=== PATIENT | male | born 1990 | race Caucasian/White ===

== ENCOUNTER 2019-11-17 15:00 | Emergency (ER) | payer SELFPAY ==
[~2019-11-17] VITALS: Ht 172.7 cm; Wt 94.3 kg
[2019-11-17 15:06] VITALS: Ht 172.7 cm; Wt 94.3 kg
[2019-11-17 15:55] VITALS: BP 131/68
== END 2019-11-17 15:55 | disposition home or self-care (01) ==
LOC: ED 15:00
DX: L03.116 Cellulitis of left lower limb (principal); S81.812D Laceration without foreign body, left lower leg, subsequent encounter; Z88.0 Allergy status to penicillin; W54.0XXD Bitten by dog, subsequent encounter

== ENCOUNTER 2019-11-20 16:44 | Emergency (ER) | payer SELFPAY ==
[~2019-11-20] VITALS: Ht 172.7 cm; Wt 94.8 kg
[2019-11-20 17:30] VITALS: BP 120/72; Ht 172.7 cm; Wt 94.8 kg
== END 2019-11-20 18:02 | disposition home or self-care (01) ==
LOC: ED 16:44
DX: S81.852D Open bite, left lower leg, subsequent encounter (principal); L08.9 Local infection of the skin and subcutaneous tissue, unspecified; Z88.0 Allergy status to penicillin; W54.0XXD Bitten by dog, subsequent encounter

== ENCOUNTER 2019-12-13 16:57 | Emergency (ER) | payer SELFPAY ==
[~2019-12-13] VITALS: Ht 172.7 cm; Wt 95.3 kg
[2019-12-13 17:01] VITALS: BP 139/78; Ht 172.7 cm; Wt 95.3 kg
== END 2019-12-13 17:27 | disposition home or self-care (01) ==
LOC: ED 16:57
DX: L03.116 Cellulitis of left lower limb (principal); Z88.0 Allergy status to penicillin

== ENCOUNTER 2019-12-15 13:53 | Emergency (ER) | payer SELFPAY ==
[~2019-12-15] VITALS: Ht 172.7 cm; Wt 95.3 kg
[2019-12-15 14:05] VITALS: BP 134/82; Ht 172.7 cm; Wt 95.3 kg
== END 2019-12-15 15:01 | disposition home or self-care (01) ==
LOC: ED 13:53
DX: L03.116 Cellulitis of left lower limb (principal); Z88.0 Allergy status to penicillin

== ENCOUNTER 2019-12-19 15:01 | Emergency (ER) | payer SELFPAY ==
[~2019-12-19] VITALS: Ht 172.7 cm; Wt 96.2 kg
[2019-12-19 15:22] VITALS: BP 105/75; Ht 172.7 cm; Wt 96.2 kg
== END 2019-12-19 15:47 | disposition home or self-care (01) ==
LOC: ED 15:01
DX: L03.116 Cellulitis of left lower limb (principal); Z88.0 Allergy status to penicillin